=== PATIENT | male | born 1940 | race Caucasian/White ===

== ENCOUNTER 2016-05-26 14:49 | Emergency (ER) | payer MEDICARE ==
[~2016-05-26] VITALS: Ht 177.8 cm; Wt 85.0 kg
[~2016-05-26 14:49] MED LIST: ALLO300T2 PO; ASPI325T32 PO; CHOL200020 PO; GABA-502 PO; IMP25T PO; KLO1T PO; METF10002 PO; MULT-1018 PO; NIAC1CAP PO; OMEP-113 PO; PRAV40TA PO; PSYL1PAC10 PO
[2016-05-26 14:53] VITALS: BP 187/98; PULSE 86; RESP 18; O2SAT 96
--- NOTE | 2016-05-26 17:23 | ED.REPORT ---
HPI-Eye Problem Date of Service May 26, 2016 ED Provider: Leandro Montanez MD 75 year old male with a history of DM who presents to the ED due to diplopia onset 5 days ago. Pt has been unable to read the newspaper even with his glasses. Pt reports L eye aching, but denies itching, burning of the eye. Pt had the same symptoms 3 years ago which was attributed to diabetes by the environmental protection forester. Pt attributed his symptoms to recently starting Vitamin B Complex. He states he developed bowel changes, vision changes and bright colored urine after this. He stopped taking this and then has had nausea since. Pt was seen by his "eye doctor", Jatinder Rodgers, who noted no acute problem 1 day after the symptoms started. He was then seen by urgent care today. He was referred to imaging, but has been unable to get a head CT. He also complains of feeling unsteady on his feet. Pt denies cough, fever, SOB and CP. Nursing Notes Stated Complaint: EYE Chief Complaint: Eye Nursing Notes Reviewed: Yes Allergies: Coded Allergies: warfarin (Verified Allergy, Unknown, excess bleeding; nose bleeds, 05/26/16 ) sulfamethoxazole (Verified Adverse Reaction, Unknown, myalgias, insomnia, 11/13/13) trimethoprim (Verified Adverse Reaction, Unknown, myalgias, insomnia, 11/13) Scheduled Allopurinol (Allopurinol) 300 Mg Tablet 1.5 TAB PO DAILY Aspirin (Aspirin) 325 Mg Tablet. 325 MG PO DAILY Cholecalciferol (Vitamin D3) (Vitamin D-3) 2,000 Unit Capsule 1,000 UNIT PO DAILY Gabapentin (Gabapentin) 300 Mg Capsule 300 MG PO HS Imipramine HCl (Imipramine HCl) 25 Mg Tab 0.5 TAB PO DAILY Metformin (Metformin) 1,000 Mg Tablet 1,000 MG PO BIDWM Multivitamin (Multi Vitamin Daily) 1 Each Tablet 1 EACH PO DAILY Niacin (Inositol Niacinate) (Niacin 500 mg Capsule) 500 Mg Capsule 500 MG PO DAILY Pravastatin (Pravastatin) 40 Mg Tablet 40 MG PO HS Scheduled PRN Clonazepam (Clonazepam) 1 Mg Tab 0.5-1 MG PO HS PRN PRN For Anxiety Omeprazole Magnesium (Omeprazole) 20 Mg Capsule. 20 MG PO DAILY PRN PRN For Dyspepsia or Heartburn Miscellaneous Medications Psyllium Seed (with Sugar) (Metamucil Packet) 1 Each Packet 1 EACH PO General Time Seen by MD: 17:20 Chief Complaint Double vision Hx Obtained From: Patient, Spouse Arrived By: Walk-in Sudden in Onset?: No Onset Occurred: 5 days ago Symptom Duration: Since onset Progression Since Onset: Constant Severity: Current: No pain currently Associated with: Denies: Fever, Nausea Pertinent Negative: Exacerbated by nothing Risk-Eye Problem NIH Stroke Scale Level of Consciousness: Alert and responsive (0) Ask Month & Age: Both questions right (0) Open/Close Eyes/Hand Customer Success Specialist: Performs both tasks (0) Horizontal EO Movements: None (0) Visual Guadalupe: No visual loss (0) Facial Palsy: Normal symmetry (0) Right Arm Motor Drift (10s): No drift 10 sec (0) Left Arm Motor Drift (10s): No drift 10 sec (0) Right Leg Motor Drift (5s): No drift 5 sec (0) Left Leg Motor Drift (5s): No drift 5 sec (0) Limb Ataxia FNF/Heel-Schreiber: No ataxia (0) Sensation (Arms/Legs/Face): No sensory loss (0) Language Aphasia: No aphasia, normal (0) Dysarthria: No dysarthria, normal (0) Extinction/Inattention: No exctinct/inattent (0) NIHSS Score: 0 Time NIHSS Performed: 17:42 Date NIHSS Performed: May 26, 2016 Past Medical History Past Medical History Gout Reports: Coronary artery disease, Diabetes mellitus, GERD Reports: Atrial fibrillation, Urinary tract infection Past Surgical History Prostatectomy Laminectomy Reports: CABG, Cataract surgery (R eye) Smoking History Former Smoker Social History Other Social History: Good social support, Ambulatory Status Independent Review of Systems Basic Review of Systems Respiratory: No shortness of breath, No cough, No wheeze Cardiovascular: No chest pain, No dyspnea on exertion, No orthopnea, No parox noct dyspnea, No palpitations Constitutional: Denies: Fever Eyes: Reports: Blurred bilateral, Diplopia, Eye pain left Skin: Denies Rash Neurologic: Reports: Problem walking, Vision change, Denies: Focal weakness Complete sys rev & neg: except as marked. Physical Exam Initial Vital Signs Vital Signs (First) Date Time Temp Pulse Resp B/P Pulse Ox O2 Delivery O2 Flow Rate FiO2 05/26/16 14:53 86 18 187/98 96 Room Air Initial VS: Reviewed Neck: Supple, Full range of motion Respiratory: Breath sounds normal, Clear to auscultation, No respiratory distress Cardiovascular: Regular rate & rhythm, Heart sounds normal, Intact distal pulses Abdomen / GI: Soft, Non-tender Extremities: Vascular intact, Neuro intact, No swelling, No tenderness Skin: Warm, Dry, No cyanosis Neurologic: Alert, Oriented, Nonfocal Psychiatric: Mood/affect normal, Behavior normal, Normal thought content Head / Eyes: Atraumatic, Normocephalic L eye slightly erythematous Discharge & Departure Shift Change Sign-Out Patient Care Transferred: Yes Discussed Complaint(s): Yes Imaging Studies: Ordered, not yet done Primary Impression: Diplopia Referrals: Nafisa Dial MD (PCP) Care Transferred to: Dr. Barber Care Transferred at: 17:53 Scribe Attestation Portions of this note were transcribed by Sue Cm. I, (Dr. Montanez) personally performed the history, physical exam and medical decision-making; I reviewed and confirmed the accuracy of the information in the transcribed note. Signed by: Sue Cm. 05/26/2016, 2747 copies to: Nafisa Dial MD, Kirk H MD May 26, 2016 17:23 Sue Cm May 26, 2016 17:36
--- NOTE | 2016-05-26 18:17 | DRSVH ---
PROCEDURE: CT BRAIN WITHOUT CONTRAST ([id number]) INDICATIONS: diplopia, unsteady gait TECHNIQUE: Noncontrast 4.5 mm thick angled axial sections acquired from the foramen magnum to the vertex, with c oronal reformats. COMPARISON: [facility], CT, BRAIN W/O CONTRAST, 04/19/2013, 17:32. FINDINGS: Image quality: Excellent. CSF spaces: Basal cisterns are patent. No extra-axial fluid collections. The ventricles are symmet acacia in size and shape. Brain: No intracranial bleeds or masses. There is cerebral volume loss for age, with resultant vent ricular and sulcal prominence. There are periventricular and deep white matter chronic small vessel ischemic changes. There is intracranial internal carotid artery atherosclerosis. Skull and face: Punctate radiopaque foci are embedded within the soft tissues overlying the frontal bone. Calvarium and visualized facial bones appear intact, without suspicious lesions. Sinuses: Visualized sinuses and mastoids are clear. IMPRESSION: 1. No acute intracranial findings. 2. Mild findings likely associated with microvascular ischemic changes. Dictated by: Terese Bro M.D. on 05/26/2016 at 18:14 Approved by: Terese Bro M.D. on 05/26/2016 at 18:16
== END 2016-05-26 19:16 | disposition home or self-care (01) ==
LOC: SED 14:49
DX: H53.2 Diplopia (principal); R11.0 Nausea; R26.81 Unsteadiness on feet; I25.10 Atherosclerotic heart disease of native coronary artery without angina pectoris; I48.91 Unspecified atrial fibrillation; K21.9 Gastro-esophageal reflux disease without esophagitis; E11.9 Type 2 diabetes mellitus without complications; Z95.1 Presence of aortocoronary bypass graft; Z98.41 Cataract extraction status, right eye; Z79.82 Long term (current) use of aspirin; Z79.84 Long term (current) use of oral hypoglycemic drugs; Z87.891 Personal history of nicotine dependence; Z88.1 Allergy status to other antibiotic agents; Z88.8 Allergy status to other drugs, medicaments and biological substances
CPT/HCPCS: 70450; 93005; 99284; G0463

== ENCOUNTER 2016-05-27 05:56 | Emergency (ER) | payer MEDICARE ==
[~2016-05-27] VITALS: Ht 177.8 cm; Wt 87.7 kg
[2016-05-27 06:00] VITALS: BP 186/90; PULSE 80; RESP 12; O2SAT 96
--- NOTE | 2016-05-27 06:03 | ED.REPORT ---
HPI-Abd Pain M 40 and Over Date of Service May 27, 2016 ED Provider: Nubia Brown MD Patient is a 75-year-old male with a history of atrial fibrillation and DM who presents to the ED due to diplopia onset 6 days ago. He was seen by his "eye doctor", Jatinder Rodgers, who noted no acute problem when the symptoms began. Patient was seen by Urgent Care and the ED yesterday at which time labs and a head CT did not reveal any acute abnormality or intracranial findings. Patient c /o associated abdominal pain, nausea and constipation. He has lost 8 lbs over the course of a week. Patient experienced the same symptoms 2 years ago which lasted for two months and was attributed to diabetes by the speech professor. He had double bypass surgery twenty years ago and has been off Coumadin for 2 years. Nursing Notes Stated Complaint: ABDOMINAL PAIN Chief Complaint: Male Abdominal Pain Nursing Notes Reviewed: Yes Allergies: Coded Allergies: warfarin (Verified Allergy, Unknown, excess bleeding; nose bleeds, 05/27/16 ) sulfamethoxazole (Verified Adverse Reaction, Unknown, myalgias, insomnia, 05/27/16) trimethoprim (Verified Adverse Reaction, Unknown, myalgias, insomnia, 05/27) Scheduled Allopurinol (Allopurinol) 300 Mg Tablet 1.5 TAB PO DAILY Aspirin (Aspirin) 325 Mg Tablet. 325 MG PO DAILY Cholecalciferol (Vitamin D3) (Vitamin D-3) 2,000 Unit Capsule 1,000 UNIT PO DAILY Gabapentin (Gabapentin) 300 Mg Capsule 300 MG PO HS Imipramine HCl (Imipramine HCl) 25 Mg Tab 0.5 TAB PO DAILY Metformin (Metformin) 1,000 Mg Tablet 1,000 MG PO BIDWM Multivitamin (Multi Vitamin Daily) 1 Each Tablet 1 EACH PO DAILY Niacin (Inositol Niacinate) (Niacin 500 mg Capsule) 500 Mg Capsule 500 MG PO DAILY Pravastatin (Pravastatin) 40 Mg Tablet 40 MG PO HS Scheduled PRN Clonazepam (Clonazepam) 1 Mg Tab 0.5-1 MG PO HS PRN PRN For Anxiety Omeprazole Magnesium (Omeprazole) 20 Mg Capsule.dr 20 MG PO DAILY PRN PRN For Dyspepsia or Heartburn Miscellaneous Medications Psyllium Seed (with Sugar) (Metamucil Packet) 1 Each Packet 1 EACH PO General Time Seen by MD: 06:00 Chief Complaint Other (double vision) Hx Obtained From: Patient Arrived By: Walk-in Sudden in Onset?: Yes Onset Occurred: 6 days ago Symptom Duration: Since onset Progression since Onset: Unchanged Severity: Current: Mild Recent Healthcare: Recent doctor visit, Recent hospitalization Similar Sx Previous: Yes Risk Factors Risk Notes: NIH score 0 NIH Stroke Scale Level of Consciousness: Alert and responsive (0) Ask Month & Age: Both questions right (0) Open/Close Eyes/Hand Mini Shifter: Performs both tasks (0) Horizontal EO Movements: None (0) Visual Guadalupe: No visual loss (0) Facial Palsy: Normal symmetry (0) Right Arm Motor Drift (10s): No drift 10 sec (0) Left Arm Motor Drift (10s): No drift 10 sec (0) Right Leg Motor Drift (5s): No drift 5 sec (0) Left Leg Motor Drift (5s): No drift 5 sec (0) Limb Ataxia FNF/Heel-Schreiber: No ataxia (0) Sensation (Arms/Legs/Face): No sensory loss (0) Language Aphasia: No aphasia, normal (0) Dysarthria: No dysarthria, normal (0) Extinction/Inattention: No exctinct/inattent (0) NIHSS Score: 0 Past Medical History Past Medical History Notes: IMPLANTED DEVICE: [employer] Reveal XT pulse generator model 9529, serial #[id number]. 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 Eyes: Reports: Blurred bilateral (double vision bilateral) Physical Exam Initial Vital Signs Vital Signs (First) Date Time Temp Pulse Resp B/P Pulse Ox O2 Delivery O2 Flow Rate FiO2 05/27/16 06:00 36.1 80 12 186/90 96 Room Air Initial VS: Reviewed General/Constitutional: Awake, Alert, No acute distress, Cooperative, Not toxic appearing Respiratory / Chest: Atraumatic, Breath sounds NL, Breath sounds = bilat, No respiratory distress, No rales, No rhonchi, No wheezing, No retractions Cardiovascular: Heart rate NL, Regular rhythm, Heart sounds NL, No gallop, No murmurs, No rubs Abdomen: Atraumatic, Soft, Non-tender Bowel Sounds / Distention: Positive: Bowel sounds hypoactive Back: Atraumatic, Inspection NL, Full range of motion, Painless range of motion , Non-tender, No midline vertebral tend Head / Eyes: Atraumatic, Normocephalic, PERRL, EOMI grossly nonfocal aside from double vision Rectum / Perineum: Atraumatic, No discharge no stool in the vault Neurologic: Oriented X3, Speech NL, No motor deficits NIH score 0 Interpretation & Diagnostics Interpretation & Diagnostics: Angiogram MRI: IMPRESSION: BRAIN MRI: 1. No acute intracranial abnormality. No recent infarct. 2. Mild volume loss and small vessel ischemic disease. 3. Borderline findings for Chiari I malformation. BRAIN MR ANGIOGRAM: Negative cerebral MR angiography. NECK MR ANGIOGRAM: 1. No right internal carotid artery stenosis. Suboptimally visualized left internal carotid artery origin, which is otherwise patent. 2. Patent bilateral vertebral arteries. The estimate of stenosis included in the report of the imaging study was calculated using the NASCET method Dictated by: Constantine Harris M.D. on 05/27/2016 at 10:09 Approved by: Constantine Harris M.D. on 05/27/2016 at 10:18 Lab Results Interpretation Result Diagram: 05/27/16 0745 05/27/16 0745 Test 05/27/16 07:42 05/27/16 07:45 Hold [place] Top Tube Received (Received) White Blood Count 12.1th/mm3 (3.8-10.1) Red Blood Count 5.30mil/mm3 (4.40-5.80) Hemoglobin 16.9g/dL (13.8-17.2) Hematocrit 48.2% (41.0-50.0) Mean Corpuscular Volume 90.9fL (81-100) Mean Corpuscular Hemoglobin 31.9pg (27.0-35.0) Mean Corpuscular Hemoglobin Concent 35.1% (32.0-37.0) Red Cell Distribution Width 13.8% (12.3-15.4) Platelet Count 164bil/L (150-400) Neutrophils (%) (Auto) 78.7% (40-74) Lymphocytes (%) (Auto) 13.6% (14-46) Monocytes (%) (Auto) 7.2% (4-12) Eosinophils (%) (Auto) 0.1% (0-5) Basophils (%) (Auto) 0.2% (0-3) Sodium Level 136mEq/L (134-144) Potassium Level 4.3mEq/L (3.5-5.2) Chloride Level 96mEq/L (97-108) Carbon Dioxide Level 24mmol/L (18-29) Blood Urea Nitrogen 20mg/dL (8-27) Creatinine 0.97mg/dL (0.76-1.27) Estimat Glomerular Filtration Rate 80mL/min (>59) Glucose Level 162mg/dL (60-99) Calcium Level 9.9mg/dL (8.5-10.1) Total Bilirubin 0.9mg/dL (0.0-1.2) Aspartate Amino Transf (AST/SGOT) 33U/L (0-50) Alanine Aminotransferase (ALT/SGPT) 68U/L (0-44) Alkaline Phosphatase 86U/L (25-160) Troponin T < 0.010ug/L (0.0-0.011) Total Protein 7.3g/dL (6.4-8.4) Albumin 4.5g/dL (3.4-5.0) Lipase 34U/L (13-60) ECG Interpretation ECG Interpretation: Prolonged DC interval Time: 07:10 Interpreted by: ED physician Normal ECG Interpretation: Normal sinus rhythm (82) Rhythm / Conduction: RBBB - complete X-Ray Abdominal Interpretation Moderate right sided constipation without obstruction Study: 2 view Interpretation / Wet Read by: Interpret - Radiologist Re-Eval/Medical Decision Med Decision/Clinical Course 6 days diplopia. Increased abdominal distention and consitpation (choronic issue). Not having eating/swallow difficulty with sx for 6 days and normal eating in that time, currently hungry and cleared to eat. Needs MRI to futher eval the acute diplopia. did have eye consult on day 2 of sx and was told "everything is ok" and doesn't recall that any additional suggestions for work up were suggested. No headache and no other neuro sx. Reports similar episode, lasted about 2 months, 2-3 years ago. Has implantable defibrillator for number of years. From web site: The Reveal Plus ILR contains no lead wires or large loops of electrically conductive material. The electromagnetic guadalupe produced during MR imaging may adversely affect the data stored by the ILR Time of Eval: 12:03 Re-Evaluation/Progress Note: Pt is rechecked. Lab results and imaging discussed. Double vision attributed to DM. Informed pt of diagnosis and plan for treatment. Folllow up with opthmologist. Pt understands and agrees with plan. F/U and RTER warnings given. All questions addressed. Consultation : Referral / Consult Name: Alpesh Ramirez MD Consulted With: Neurology Call Returned at: 11:05 Brazing Machine Operator: Agrees with eval, Agrees with plan Note: Dr. Ramirez consulted and case disscussed. Counseled Regarding: Diagnosis, Lab results, Need for follow-up, When/why to return to ED Discharge & Departure Primary Impression: Diplopia Additional Impression: Constipation Ruled Out: Stroke Disposition: Home Vital Signs - All Vital Signs Date Time Temp Pulse Resp B/P Pulse Ox O2 Delivery O2 Flow Rate FiO2 05/27/16 06:00 36.1 80 12 186/90 96 Room Air )( All Prior VS Reviewed: Yes Condition: Stable Additional Instructions: Thank you for coming to the Emergency Room today. After reviewing your lab results and imaging, there are no signs of infection or serious health problems. The brain MRI is normal, there are no signs of stroke or tumor growth. Your double vision may be attributed to complications with diabetes and the small muscles that control eye movement. Please follow up with the speech professor who can assist you with further care. Please continue your daily asprin We hope you feel better soon! Referrals: Nafisa Dial MD (PCP) Scribe Attestation Portion of this note were transcribed by Marbella Covarrubias. I, Dr. Brown, personally performed the history, physical exam, and medical decision-making: I reviewed and confirmed the accuracy for the information in the transcribed note. Signed by: priya James, 05/27/16 0000 copies to: Nafisa Dial MD, Shawna L MD May 27, 2016 06:03 MARBELLA COVARRUBIAS May 27, 2016 06:27
[2016-05-27 07:56] LABS: BASOPHILS % (AUTO) 0.2 % (0-3); EOSINOPHILS % (AUTO) 0.1 % (0-5); MONOCYTES % (AUTO) 7.2 % (4-12); Mean Corpuscular Hemoglobin 31.9 pg (27.0-35.0); Mean Corpuscular Volume 90.9 fL (81-100); NEUTROPHILS % (AUTO) 78.7 % (40-74); Platelet Count 164 bil/L (150-400)
[2016-05-27 08:45] LABS: TROPONIN T < 0.010 ug/L (0.0-0.011)
--- NOTE | 2016-05-27 09:27 | DRSVH ---
PROCEDURE: X-RAY ABDOMEN, ONE VIEW ([id number]) INDICATIONS: constipation TECHNIQUE: One view of the abdomen acquired. COMPARISON: None. FINDINGS: Surgical changes and devices: Multiple pelvic surgical clips. Bowel: Moderate colonic stool present otherwise bowel gas pattern is normal. Soft tissues: No suspicious abdominal calcifications. Visualized solid organ contours appear normal in size. Bones: No suspicious bony lesions. IMPRESSION: Moderate colonic stool. Dictated by: Kwabena Decker RR Interpreted: Pj Elizabeth MD on 05/27/2016 at 9:26 Transcribed by: LEONA on 05/27/2016 at 9:26 Approved by: Pj Elizabeth M.D. on 05/27/2016 at 9:59
--- NOTE | 2016-05-27 10:20 | DRSVH ---
PROCEDURE: MRI STROKE PROTOCOL ([id number]) Pre- and post-contrast brain MRI, non-contrast brain MR angiogram, pre- and postcontrast neck MR rimma ogram INDICATIONS: 6 days severe diplopia TECHNIQUE: Brain: Noncontrast axial T1 spin echo, axial T2 fast spin echo, sagittal and axial FLAIR, coronal T2 fast spin echo, axial gradient echo, axial diffusion and ADC through the brain. After the administr ation of contrast, axial 3D VIBE of the cranial vasculature and brain. Brain MRA: Non-contrast 3-D time of flight MR angiogram, with multiple mjibkfj-embcyfmab-yptfkhiozn (MIP) reformats performed. Neck MRA: Axial and sagittal TruFISP through the neck. Coronal dynamic MR angiogram during administ ration of contrast in the arterial and venous phases, with 3-dimenstional duveujc-zvzkguxej-pxcucmzff n (MIP) reformats constructed from subtraction images. COMPARISON: None. FINDINGS: Image quality: Excellent. BRAIN: CSF spaces: Ventricles are normal in size and shape. Basal cisterns are patent. No extra-axial flu id collections. Brain: No intracranial bleeds or mass effects. There is mild diffuse volume loss. Mild degree of pat true high FLAIR signal intensity within the periventricular and subcortical white matter, consistent w ith small vessel ischemic disease. Sellers-white matter interface is normal. Diffusion weighted images show no acute ischemic insults. Low lying cerebellar tonsils are present, extending roughly 6 mm bel ow the foramen magnum Brainstem appears normal. Normal intravascular flow voids are present. No abn ormal intracranial enhancement. Skull and face: Calvarial marrow signal is normal. Orbits appear normal. Sinuses: Sinuses and mastoids are clear. BRAIN MR ANGIOGRAM: Anterior circulation: Intracranial internal carotid arteries are normal in size and enhancement. Th e flow within the paired anterior cerebral arteries is normal and symmetric. The flow within the mid dle cerebral arteries is normal and symmetric. The anterior communicating artery is seen. No stenos es, occlusions, or aneurysms. Posterior circulation: The visualized portions of the vertebral arteries demonstrate normal caliber, and join to form a normal appearing basilar artery. The flow within the posterior cerebral arteries is normal and symmetric. No stenoses, occlusions, or aneurysms. NECK MR ANGIOGRAM: Carotids: Great vessels demonstrate a conventional anatomy as they arise from the aortic arch. The origins of the common carotid arteries appear patent. The calibers and courses of both common caroti d arteries are normal. The right internal carotid artery is patent. Left proximal internal coronary a rtery is not well seen secondary to artifact, but is otherwise patent. Posterior circulation: The origins of the vertebral arteries appear patent. More superior portions of both vertebral arteries demonstrate normal course and caliber, and join to form a normal appearing basilar artery. Miscellaneous: Subclavian arteries appear patent. Pre-contrast images through the neck show no soft tissue abnormalities. IMPRESSION: BRAIN MRI: 1. No acute intracranial abnormality. No recent infarct. 2. Mild volume loss and small vessel ischemic disease. 3. Borderline findings for Chiari I malformation. BRAIN MR ANGIOGRAM: Negative cerebral MR angiography. NECK MR ANGIOGRAM: 1. No right internal carotid artery stenosis. Suboptimally visualized left internal carotid artery or igin, which is otherwise patent. 2. Patent bilateral vertebral arteries. The estimate of stenosis included in the report of the imaging study was calculated using the NASCET method Dictated by: Constantine Harris M.D. on 05/27/2016 at 10:09 Approved by: Constantine Harris M.D. on 05/27/2016 at 10:18
[2016-05-27 12:21] VITALS: BP 189/92; PULSE 78; RESP 16; O2SAT 95
== END 2016-05-27 12:25 | disposition home or self-care (01) ==
LOC: SED 06:17
DX: H53.2 Diplopia (principal); K59.00 Constipation, unspecified; E11.9 Type 2 diabetes mellitus without complications; K21.9 Gastro-esophageal reflux disease without esophagitis; I25.10 Atherosclerotic heart disease of native coronary artery without angina pectoris; Z95.1 Presence of aortocoronary bypass graft; Z87.891 Personal history of nicotine dependence; Z79.82 Long term (current) use of aspirin; Z79.84 Long term (current) use of oral hypoglycemic drugs; Z88.2 Allergy status to sulfonamides; Z88.8 Allergy status to other drugs, medicaments and biological substances
CPT/HCPCS: 36415; 70549; 70553; 74000; 80053; 83690; 84484; 85025; 93005; 99284; A9585

== ENCOUNTER 2016-06-03 03:10 | Emergency (ER) | payer MEDICARE ==
[~2016-06-03] VITALS: Ht 177.8 cm; Wt 90.9 kg
[2016-06-03] VITALS (19 sets, daily range): BP systolic 132–191; BP diastolic 72–100; PULSE 67–125; RESP 16–21; O2SAT 93–96
--- NOTE | 2016-06-03 03:12 | ED.REPORT ---
HPI-General Illness Date of Service Jun 03, 2016 ED Provider: Shayan Gambino MD Patient is a 75 year old male with a history of diabetes mellitus, coronary artery disease, and atrial fibrillation who presents to the ED via EMS with altered mental status, after he reportedly developed a headache and nausea this morning. Patient has been experiencing diplopia for the past week, with 2x ED visits on the and for this complaint. The patient had a normal CT Brain and an MR Angio Head and Neck, which was normal other than the finding of a borderline Chiari malformation. Patient has also reported severe pain in his left eye, which also is also present in his right eye intermittently. Patient is unable to clarify when his headache tonight started but there was no mention of the patient having a headache prior to today. Patient is having difficulty providing history on arrival to the ED, however it is known that he is scheduled to be seen at [facility] today for his diplopia, with Dr. Rutledge. Nursing Notes Stated Complaint: MO Nursing Notes Reviewed: Yes Allergies: Coded Allergies: warfarin (Verified Allergy, Unknown, excess bleeding; nose bleeds, 06/03/16 ) sulfamethoxazole (Verified Adverse Reaction, Unknown, myalgias, insomnia, 06/03/16) trimethoprim (Verified Adverse Reaction, Unknown, myalgias, insomnia, 06/03) Scheduled Allopurinol (Allopurinol) 300 Mg Tablet 1.5 TAB PO DAILY Aspirin (Aspirin) 325 Mg Tablet.dr 325 MG PO DAILY Cholecalciferol (Vitamin D3) (Vitamin D-3) 2,000 Unit Capsule 1,000 UNIT PO DAILY Gabapentin (Gabapentin) 300 Mg Capsule 300 MG PO HS Imipramine HCl (Imipramine HCl) 25 Mg Tab 0.5 TAB PO DAILY Metformin (Metformin) 1,000 Mg Tablet 1,000 MG PO BIDWM Multivitamin (Multi Vitamin Daily) 1 Each Tablet 1 EACH PO DAILY Niacin (Inositol Niacinate) (Niacin 500 mg Capsule) 500 Mg Capsule 500 MG PO DAILY Pravastatin (Pravastatin) 40 Mg Tablet 40 MG PO HS Scheduled PRN Clonazepam (Clonazepam) 1 Mg Tab 0.5-1 MG PO HS PRN PRN For Anxiety Omeprazole Magnesium (Omeprazole) 20 Mg Capsule.dr 20 MG PO DAILY PRN PRN For Dyspepsia or Heartburn Miscellaneous Medications Psyllium Seed (with Sugar) (Metamucil Packet) 1 Each Packet 1 EACH PO General Time Seen by MD: 03:12 Chief Complaint Altered mental status, Headache Hx Obtained From: Patient, EMS Unable to Obtain Hx: Patient condition, Mental status Arrived By: Ambulance Sudden in Onset?: No Onset Occurred: Onset unknown Symptom Duration: Since onset Location: : Head Quality: Painful Severity: Current: Severe Severity: Maximum: Severe Recent Healthcare: Recent doctor visit Similar Sx Previous: Yes Past Medical History Past Medical History Notes: IMPLANTED DEVICE: [employer]urance Reveal XT pulse generator model 9529, serial #[id number]. Past Medical History Gout heart murmur hyperlipidemia chronic constipation sleep apnea Menieres disease cataracts in both eyes prostrate cancer Reports: Coronary artery disease, Diabetes mellitus, GERD Reports: Atrial fibrillation, Urinary tract infection Past Surgical History Prostatectomy Laminectomy Reports: CABG, Cataract surgery Smoking History Former Smoker Social History Other Social History: Good social support, Ambulatory Status Independent Review of Systems Unable to Obtain ROS Mental status (limited) Full Review of Systems Eyes: Reports: Diplopia, Eye pain left, Eye pain right GI: Reports: Nausea Neurologic: Reports: Headache Complete sys rev & neg: except as marked. Physical Exam Vital Signs Vital Signs Date Time Temp Pulse Resp B/P Pulse Ox O2 Delivery O2 Flow Rate FiO2 06/03/16 06:04 79 18 132/76 93 Room Air 06/03/16 05:18 87 18 155/94 95 Room Air 06/03/16 05:11 95 18 153/95 95 Room Air 06/03/16 05:02 98 138/95 06/03/16 04:57 120 138/95 06/03/16 04:40 125 06/03/16 04:26 117 18 136/81 95 Room Air 06/03/16 03:16 36.7 113 21 188/100 96 Room Air Initial VS: Reviewed General/Constitutional: Awake, Alert Patient is able to answer yes/no questions, but is otherwise nonverbal cannot assess orientation Head / Eyes: Atraumatic, Normocephalic, PERRL Complete palsy of the left medial rectus, left eye will not cross the midline. No findings of the right eye. Left eye is patched to prevent diplopia. ENT: Airway patent Neck: Supple, Full range of motion Respiratory / Chest: Breath sounds NL, Breath sounds = bilat, No respiratory distress, No rales, No rhonchi, No wheezing Cardiovascular: Heart rate NL, Regular rhythm, Heart sounds NL, No murmurs Abdomen: Soft, Non-tender, No guarding, No rebound Upper Extremities Upper Extremity / MS: Full range of motion, Neurologic intact, Vascular intact Lower Extremity / Pelvis / MS: Full range of motion, Neurologic intact, Vascular intact Neurologic: No motor deficits (equal but weak machine pan greaser strength) Complete palsy of the left medial rectus, left eye will not cross the midline. Very mild left sided facial slackness, but it will move. Abnormal Mood/Affect: Positive: Flat affect Interpretation & Diagnostics Lab Results Interpretation Result Diagram: 06/03/16 0320 06/03/16 0320 Test 06/03/16 03:20 06/03/16 04:08 White Blood Count 13.1th/mm3 (3.8-10.1) Red Blood Count 5.51mil/mm3 (4.40-5.80) Hemoglobin 18.0g/dL (13.8-17.2) Hematocrit 50.7% (41.0-50.0) Mean Corpuscular Volume 92.0fL (81-100) Mean Corpuscular Hemoglobin 32.7pg (27.0-35.0) Mean Corpuscular Hemoglobin Concent 35.5% (32.0-37.0) Red Cell Distribution Width 13.8% (12.3-15.4) Platelet Count 179bil/L (150-400) Neutrophils (%) (Auto) 70.6% (40-74) Lymphocytes (%) (Auto) 19.8% (14-46) Monocytes (%) (Auto) 9.0% (4-12) Eosinophils (%) (Auto) 0.2% (0-5) Basophils (%) (Auto) 0.2% (0-3) Prothrombin Time 11.9sec (8.1-12.5) Prothromb Time International Ratio 1.11ratio Activated Partial Thromboplast Time 27.3sec (22.8-33.0) Sodium Level 137mEq/L (134-144) Potassium Level 4.4mEq/L (3.5-5.2) Chloride Level 96mEq/L (97-108) Carbon Dioxide Level 21mmol/L (18-29) Blood Urea Nitrogen 21mg/dL (8-27) Creatinine 1.18mg/dL (0.76-1.27) Estimat Glomerular Filtration Rate 64mL/min (>59) Glucose Level 171mg/dL (60-99) Calcium Level 9.9mg/dL (8.5-10.1) Magnesium Level 2.0mg/dL (1.6-2.6) Total Bilirubin 0.8mg/dL (0.0-1.2) Aspartate Amino Transf (AST/SGOT) 27U/L (0-50) Alanine Aminotransferase (ALT/SGPT) 56U/L (0-44) Alkaline Phosphatase 87U/L (25-160) Troponin T 0.010ug/L (0.0-0.011) Total Protein 7.7g/dL (6.4-8.4) Albumin 4.8g/dL (3.4-5.0) Alcohol, Quantitative < 10mg/dL (0-10) Urine Color Yellow (YELLOW) Urine Appearance Clear (CLEAR,HAZY) Urine pH 6.5 (5.0-8.0) Urine Specific Haugen 1.015 (1.003-1.035) Urine Protein Tracemg/dL (NEG,TRACE) Urine Glucose (UA) Negativemg/dL (NEGATIVE) Urine Ketones Tracemg/dL (NEGATIVE) Urine Occult Blood Trace (NEGATIVE) Urine Nitrite Negative (NEGATIVE) Urine Bilirubin Negative (NEGATIVE) Urine Urobilinogen Normalmg/dL (NORMAL) Urine Leukocyte Esterase Negative (NEGATIVE) Urine RBC 0-2/hpf (0-2) Urine WBC 0-5/hpf (0-5) Urine Epithelial Cells Occasional/hpf (NONE-MOD) Urine Crystals None seen (NONE SEEN) Urine Bacteria None/hpf (NONE-FEW) Urine Hyaline Casts None/lpf (NONE) Urine Granular Casts None seen (NONE SEEN) Urine Waxy Casts None seen (NONE SEEN) Urine Red Blood Cell Casts None seen (NONE SEEN) Urine White Blood Cell Casts None seen (NONE SEEN) Urine Mucus None seen (None Seen) Urine Trichomonas None seen (NONE SEEN) Urine Yeast None (NONE SEEN) Urine Culture Reflexed Not indicated ECG Interpretation ECG Interpretation: Sinus tachycardia, Rate 108 RBBB Prominent P waves Time: 03:21 Interpreted by: ED physician Normal ECG Interpretation: No change from prior ECGs (05/27/2016, other than tachycardia) X-Ray Chest Interpretation View: Portable Interpretation / Wet Read by: Wet read ED physician Reviewed Previous Films: No change CT Head Interpretation CONCLUSION: Mild atrophy and periventricular white matter changes consistent with the patient's age. No hemorrhage or other specific acute abnormality demonstrated. Disconjugate gaze? Radiologist: Dash Washington MD 06/03/2016 - 4:05:36 AM PST Study: Head CT no contrast Interpretation / Wet Read by: Interpret - Radiologist Re-Eval/Medical Decision Med Decision/Clinical Course 75-year-old with a recent onset of a third nerve palsy affecting the medial rectus of the left eye. He is ordinarily quite oriented and alert, and presents today with a headache and altered mental status, seeming confused and inconsolable about multiple symptoms including restless legs his headache generalized pain. There are no other focal findings noted on his neurological exam. Repeat CT today does not show any bleeding. There is no metabolic explanation apparent. Chest x-ray is unchanged, urine tox is negative for intoxicants, and alcohol is negative. Discussed with neurology at [facility], where he is to be seen today, and they will take him in transfer pending bed availability. Anticipate that at change of shift this morning. He will be transferred by S ambulance, required because of his need for supervision given his mental status change. Source of Hx: Old records Time of Eval: 05:23 Re-Evaluation/Progress Note: Rechecked the patient, who is now joined by his significant other. He states that the patient is typically very sharp and with it. He was seen by Dr. Gordon yesterday, who believed that his symptoms were due to diabetes mellitus. He states that Dr. Rutledge, who works at [facility], was able to resolve this same problem 3 years ago. He has an appointment at that facility at 8:30am this morning. Patient complains of restless legs. Patient will need to be admitted to the hospital for further care, will contact [facility] for possible transfer. Time of Eval: 06:06 Re-Evaluation/Progress Note: Informed the patient and his family of pending transfer to [facility]. This process may take several hours. Will update them once there is more information. Consultation #1: Consulted With: Neurology Call Returned at: 05:46 Note: Spoke with Dr. Boone, [facility], about the patient's case. She requests to have the patient transferred to [facility]. Consultation #2: Call Returned at: 06:06 Note: Spoke with the [facility] transfer center. They will accept the patient for transfer, pending bed availability. Counseled Regarding: Diagnosis, Lab results, Need for admission, Need for transfer Discharge & Departure Primary Impression: Altered mental status Altered mental status type: unspecified Qualified Code: R41.82 - Altered mental status, unspecified Additional Impressions: Diplopia Headache Headache type: unspecified Headache chronicity pattern: acute headache Intractability: intractable Qualified Code: R51 - Headache Disposition: Transfer, Acute Care Facility ([facility]) Receiving Hospital: [facility] Transfer Accepted: Yes Transfer Reason: Higher level of care Spoke with: Specialty physician Patient Status: Stable Patient Informed: Yes Discharge Condition All VS Reviewed: Yes Condition: Stable Referrals: Nafisa Dial MD (PCP) WILLI GORDON MD Attestation Portions of this note were transcribed by Rosy Hurt. I, Dr. Gambino personally performed the history, physical exam and medical decision-making; I reviewed and confirmed the accuracy of the information in the transcribed note. Signed by: Elgin Mcdonough, 06/03/2016 0607 copies to: WILLI GORDON MD; Nafisa Dial MD, Christopher W MD Jun 03, 2016 03:12 Rosy Hurt Jun 03, 2016 03:30
[2016-06-03 03:24] LABS: BASOPHILS % (AUTO) 0.2 % (0-3); EOSINOPHILS % (AUTO) 0.2 % (0-5); Mean Corpuscular Hemoglobin 32.7 pg (27.0-35.0); NEUTROPHILS % (AUTO) 70.6 % (40-74); Platelet Count 179 bil/L (150-400)
[2016-06-03] MEDS ORDERED: 0.9% Sodium Chloride 1,000 ML IV ONE (03:24)
[2016-06-03] MEDS ORDERED: Ondansetron 2 mg/mL 2 mL Inj ONE (03:32)
[2016-06-03 03:42] LABS: INR 1.11 ratio
[2016-06-03 03:52] LABS: TROPONIN T 0.01 ug/L (0.0-0.011)
[2016-06-03 04:16] LABS: APPEARANCE,URINE CLEAR (CLEAR,HAZY); COLOR,URINE YELLOW (YELLOW); OCCULT BLOOD,URINE TRACE (NEGATIVE); PH,URINE 6.5 (5.0-8.0); UROBILINOGEN,URINE NORMAL (NORMAL)
[2016-06-03] MEDS: MeTOProlol 1 mg/mL 5 mL Inj IVPUSH SCH ×3 (04:59→05:12)
[2016-06-03] MEDS ORDERED: Ketorolac 15 mg/mL Inj IVPUSH ONE (06:00)
[2016-06-03] MEDS ORDERED: Ondansetron 2 mg/mL 2 mL Inj IVPUSH ONE (06:10)
[2016-06-03] MEDS ORDERED: oxyCODONE-Acetamin 5-325 mg Tablet PO ONE ×4 (06:25→13:50)
--- NOTE | 2016-06-03 08:13 | DRSVH ---
PROCEDURE: CT BRAIN WITHOUT CONTRAST ([id number]) INDICATIONS: DOUBLE VISION HEADACHE TECHNIQUE: Noncontrast 4.5 mm thick angled axial sections acquired from the foramen magnum to the vertex, with c oronal reformats. COMPARISON: [facility], MR, MR STROKE PROTOCOL, 05/27/2016, 8:47. [facility] , CT, CT BRAIN WO CON, 05/26/2016, 17:50. FINDINGS: Image quality: Excellent. CSF spaces: Basal cisterns are patent. No extra-axial fluid collections. The ventricles are symmet acacia in size and shape. Brain: No intracranial bleeds or masses. There is moderate cerebral volume loss for age, with resul tant ventricular and sulcal prominence. There are moderate periventricular and deep white matter chr onic small vessel ischemic changes. There is intracranial internal carotid artery atherosclerosis. Skull and face: Calvarium and visualized facial bones appear intact, without suspicious lesions. Sinuses: Visualized sinuses and mastoids are clear. IMPRESSION: 1. No acute intracranial abnormalities. 2. Cerebral volume loss and chronic microvascular ischemic changes. No significant discrepancy with the night warehouse manager radiology preliminary report. Dictated by: Pj Elizabeth M.D. on 06/03/2016 at 8:08 Approved by: Pj Elizabeth M.D. on 06/03/2016 at 8:11
--- NOTE | 2016-06-03 09:03 | DRSVH ---
PROCEDURE: X-RAY CHEST ONE VIEW, PORTABLE ([id number]) INDICATIONS: CP TECHNIQUE: One view of the chest was acquired. COMPARISON: [facility], CR, CHEST 1VW (PORTABLE), 04/19/2013, 16:45. FINDINGS: Surgical changes and devices: Post median sternotomy. A chronic device projected over the mid left l tobi. Lungs and pleura: No pleural effusions or pneumothorax. Bibasilar streaky opacities redemonstrated. Mediastinum: Mediastinal contours appear normal. Heart size is normal. Bones and chest wall: No suspicious bony lesions. Overlying soft tissues appear unremarkable. IMPRESSION: 1. Bibasilar atelectasis versus aspiration, pneumonia or scarring which appear similar to prior exam. Correlate clinically. Dictated by: Kwabena Decker [facility] Interpreted: Karlie Lewis MD on 06/03/2016 at 9:01 Transcribed by: MATILDA on 06/03/2016 at 9:02 Approved by: Karlie Lewis MD, PhD on 06/03/2016 at 17:03
--- NOTE | 2016-06-03 13:57 | DRSVH ---
PROCEDURE: MRI STROKE PROTOCOL ([id number]) Pre- and post-contrast brain MRI, non-contrast brain MR angiogram, pre- and postcontrast neck MR rimma ogram INDICATIONS: acute altered mental status, 2 wks diplopia TECHNIQUE: Brain: Noncontrast axial T1 spin echo, axial T2 fast spin echo, sagittal and axial FLAIR, coronal T2 fast spin echo, axial gradient echo, axial diffusion and ADC through the brain. After the administr ation of contrast, axial 3D VIBE of the cranial vasculature and brain. Brain MRA: Non-contrast 3-D time of flight MR angiogram, with multiple bmxvpmh-jqxlqxfod-nfsnzvslxv (MIP) reformats performed. Neck MRA: Axial and sagittal TruFISP through the neck. Coronal dynamic MR angiogram during administ ration of contrast in the arterial and venous phases, with 3-dimenstional jbdaxtq-cowklruty-przapchzn n (MIP) reformats constructed from subtraction images. COMPARISON: [facility], , MR STROKE PROTOCOL, 05/27/2016, 8:47. FINDINGS: Image quality: Limited by motion artifact. BRAIN: CSF spaces: Ventricles are normal in size and shape. Basal cisterns are patent. No extra-axial flu id collections. Brain: No intracranial bleeds or mass effects. Sellers-white matter interface is normal. Diffusion we ighted images show no acute ischemic insults. Scattered, punctate foci of increased T2 signal noted in the periventricular and subcortical white matter tracts compatible with mild chronic microvascular ischemic change. Brainstem appears normal. Low lying cerebellar tonsils are stable in appearance com pared to prior examination. Normal intravascular flow voids are present. No abnormal intracranial e nhancement. Skull and face: Calvarial marrow signal is normal. Orbits appear normal. Sinuses: Sinuses and mastoids are clear. BRAIN MR ANGIOGRAM: Anterior circulation: Intracranial internal carotid arteries are normal in size and enhancement. Th e flow within the paired anterior cerebral arteries is normal and symmetric. The flow within the mid dle cerebral arteries is normal and symmetric. The anterior communicating artery is seen. No stenos es, occlusions, or aneurysms. Posterior circulation: The visualized portions of the vertebral arteries demonstrate normal caliber, and join to form a normal appearing basilar artery. The flow within the posterior cerebral arteries is normal and symmetric. No stenoses, occlusions, or aneurysms. NECK MR ANGIOGRAM: Carotids: Great vessels demonstrate a conventional anatomy as they arise from the aortic arch. The origins of the common carotid arteries appear patent. The calibers and courses of both common caroti d arteries are normal. The bifurcation regions appear normal bilaterally. The internal carotid clarissa aicha demonstrate normal course and caliber. Posterior circulation: The origins of the vertebral arteries appear patent. More superior portions of both vertebral arteries demonstrate normal course and caliber, and join to form a normal appearing basilar artery. Miscellaneous: Subclavian arteries appear patent. Pre-contrast images through the neck show no soft tissue abnormalities. IMPRESSION: BRAIN MRI: 1. Stable examination compared to 05/27/16. 2. No acute intracranial disease process. 3. No areas of acute or chronic infarction. 4. Mild, diffuse volume loss. 5. Mild periventricular and subcortical white matter chronic microvascular ischemic changes. 6. Low lying cerebellar tonsils stable compared to prior examination.. BRAIN MR ANGIOGRAM: Negative examination. NECK MR ANGIOGRAM: 1. Less than 50% stenosis of the origins of the internal carotid arteries bilaterally. 2. Vertebral arteries are fully patent bilaterally. The estimate of stenosis included in the report of the imaging study was calculated using the NASCET method Dictated by: Karlie Lewis MD, PhD on 06/03/2016 at 13:38 Approved by: Karlie Lewis MD, PhD on 06/03/2016 at 13:55
== END 2016-06-03 14:04 | disposition short-term general hospital (02) ==
LOC: SED 03:10
DX: R41.82 Altered mental status, unspecified (principal); H53.2 Diplopia; K21.9 Gastro-esophageal reflux disease without esophagitis; E11.9 Type 2 diabetes mellitus without complications; I25.10 Atherosclerotic heart disease of native coronary artery without angina pectoris; Z85.46 Personal history of malignant neoplasm of prostate; Z87.891 Personal history of nicotine dependence; Z95.1 Presence of aortocoronary bypass graft; Z79.82 Long term (current) use of aspirin; Z79.84 Long term (current) use of oral hypoglycemic drugs; Z88.2 Allergy status to sulfonamides; Z88.8 Allergy status to other drugs, medicaments and biological substances
CPT/HCPCS: 36415; 70450; 70549; 70553; 71010; 80053; 81000; 82948; 83735; 84484; 85025; 85610; 85730; 93005; 96361; 96374; 96375; 96376; 99285; A9585; G0480; J1885; J2060; J2405; J7030

== ENCOUNTER → 2016-10-31 | Day surgery (SDC) | payer MEDICARE ==
[~2016-10-31] VITALS: Ht 177.8 cm; Wt 88.0 kg
[~2016-10-31] MED LIST changes: +ASPI-973 PO; +GLIP2.5T2 PO; +Lactated Ringer's 1,000 ML IV ONE; +Lactated Ringer's 1,000 ML IV SCH; +MetoCLOpramide 5 mg/mL 2 mL Inj IVPUSH PRN; +Ondansetron 2 mg/mL 2 mL Inj IVPUSH PRN; +Propofol 10,000 mCg/mL 20 mL Inj ONE; +fentaNYL-PF 50 mCg/mL 2 mL Inj ONE
--- NOTE | 2016-10-31 08:40 | PCM.HPANE ---
Patient Data Surgeon Admitting Provider: Attending Provider:Joe Tobar MD Primary Care Physician:Nafisa Dial MD Other Provider:Chuy Fields Anesthesia Reason for Visit Diverticulitis Ht/WT & BMI Body Mass Index Allergies Coded Allergies: warfarin (Verified Allergy, Unknown, excess bleeding; nose bleeds, 10/31/16 ) sulfamethoxazole (Verified Adverse Reaction, Unknown, myalgias, insomnia, 10/31/16) trimethoprim (Verified Adverse Reaction, Unknown, myalgias, insomnia, 10/31) Past Anesthesia History Anesthesia History: Denies:: Abnormal Airway, Anesthesia Reactions, Difficult Intubation, Fam Anesthesia Reaction, Fam Malignant Hypertherm, Malignant Hyperthermia Diabetes History Hx Diabetes?: Yes (doesn't check blood sugars on a regular basis.) 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) Medications Blood Thinner: Aspirin Reported Medications Aspirin 81 Mg [id number] Mg PO DAILY Ref 0 10/31/16 Glipizide ER 2.5 Mg Tab.er.242.5 Mg PO DAILY 10/30/16 Gabapentin 300 Mg [id number] Mg PO HS 30 Days Ref 0 09/01/14 Metformin 1,000 Mg Tablet1,000 Mg PO BIDWM 30 Days Ref 0 09/01/14 Clonazepam 1 Mg Tab0.5-1 Mg PO HS PRN For Anxiety 30 Days Ref 0 08/31/14 Imipramine HCl 25 Mg Tab0.5 Tab PO DAILY Ref 0 11/13/13 Omeprazole Magnesium (Omeprazole)20 Mg Capsule.dr20 Mg PO DAILY PRN For Dyspepsia or Heartburn 30 Days Ref 0 11/13/13 Cholecalciferol (Vitamin D3) (Vitamin D-3)2,000 Unit Capsule1,000 Unit PO DAILY 11/13/13 Niacin (Inositol Niacinate) (Niacin 500 mg Capsule)500 Mg [id number] Mg PO DAILY 11/13/13 Pravastatin 40 Mg Jnjeea84 Mg PO HS 30 Days Ref 0 11/13/13 Allopurinol 300 Mg Tablet1.5 Tab PO DAILY #30 TABLET Ref 0 11/13/13 Discontinued Reported Medications Aspirin 325 Mg Tablet.dr325 Mg PO DAILY #1 BOTTLE Ref 0 09/01/14 Psyllium Seed (with Sugar) (Metamucil Packet)1 Each Packet1 Each PO 08/31/14 Multivitamin (Multi Vitamin Daily)1 Each Tablet1 Each PO DAILY 30 Days Ref 0 11/13/13 History History of ENT Problems?: Yes HEENT History: Positive for:: Cataracts (Rt eye couple of yrs ago) Hearing Problem Sinus Problem (Chronic allergies) Denies:: Abnormal Airway Difficult Intubation Dysphagia Denture Type: None Teeth Condition: Within Normal Limits Hx of Heart Problems?: Yes Cardiovascular History: Positive for:: Atrial Fibrillation Cardiac Surgery (CABG 2 way) Chest Pain Irregular Heartbeat (A. Vera, diagnosed "A year or year and half ago.") Denies:: AICD Congestive Heart Failure Edema Heart Murmur Hypertension Pacemaker Thrombophlebitis Valvular Heart Disease Hx of Respiratory Problem?: Yes Respiratory History: Positive for:: Chest Surgery (CABG) Denies:: Asthma COPD Cough Dyspnea Emphysema Hemoptysis Pneumonia Tuberculosis Hx Neurologic Problems?: Yes Neurological History: Positive for:: Dizziness (benign positional vertigo / dizziness) Denies:: Alzheimer's Disease CVA Dementia Headaches Parkinson's Disease Seizures Hx of GI Problems?: Yes Hx of Problems?: Yes Genitourinary History: Positive for:: Urinary Tract Infection Denies:: Kidney Stones Male Hx: Positive for:: Prostate Problems (prostatectomy '06) Denies:: Scrotal Mass Testicular Surgery Skin History: Denies:: History Skin Disorders? Pressure Ulcers Hx Musculoskeletal Problems?: Yes Musculoskeletal History: Positive for:: Back Injury (Laminectomy) Denies:: Joint Replacement Musculoskeletal Trauma Hx of Psycho/Social Problems?: Yes Psycho Social History: Positive for:: Anxiety Denies:: Bipolar Disorder Hx Depression Suicide Attempt Hx Surgeries?: Yes (double bypass, prostatectomy, laminectomy,ECG recorder placed) Hx Any Other Health Problems?: Yes Other History: Positive for:: Cancer (prostate) Hospitalization (2012 [facility]) Denies:: Endocrine Disease Thyroid Disease History Blood Transfusions: Denies:: Blood Transfusions Hx Diabetes: Yes (doesn't check blood sugars on a regular basis.) Hx Alcohol Use: Yes (rarely)Hx Substance Use: No Smoking Status: Former Smoker Have You Smoked inLast 12 mo: No Stop/Bang Risk Assessment Category Category 1A: Patient has history of documented sleep apnea, and HAS NOT received any narcotic, sedative or anesthesia administration during this stay. Category 1B: Patient has history of documented sleep apnea, and HAS received any narcotic , sedative or anesthesia administration during this stay Category 2: Patient has SUSPECTED Obstructive Sleep Apnea, and HAS received any narcotic , sedative or anesthesia administration during this stay. Category 3: Patient has SUSPECTED Obstructive Sleep Apnea and HAS NOT received narcotic, sedative or anesthesia administration during this stay. Category 4: Outpatient in Procedural Areas with known sleep apnea or who screen positive for High Risk via the STOP/BANG questionnaire. Exam Exam General Appearance: Alert, Oriented X3, Cooperative HEENT/AIRWAY: MP 2 Lungs: Clear to Auscultation Heart: Exam Unremarkable Plan Impression Patient chart reviewed, patient interviewed and anesthestic plan with risks, benefits, and alternatives discussed, and informed consent obtained. ASA Physical Status: ASA2 Mod Systemic Disease Anesthetic Plan: MAC Bene/Risks/Altern/Consents: Yes HP Complete Prior to Induction: Yes Modesto Masterson MD Oct 31, 2016 08:40
[2016-10-31 09:04] VITALS: BP 142/77; PULSE 69; RESP 16; O2SAT 95
[2016-10-31 10:20] VITALS: BP 99/53; PULSE 64; RESP 16; O2SAT 92
[2016-10-31 10:32] VITALS: BP 111/64; PULSE 60; RESP 16; O2SAT 94
[2016-10-31 10:40] VITALS: BP 120/68; PULSE 59; RESP 16; O2SAT 96
--- NOTE | 2016-10-31 11:30 | ENDO ---
[address] [address] ENDOSCOPY PROCEDURE PATIENT: PALOMA JOHNSTON : 1940 MR#: [id number] ADMIT: 10/31/2016 JOB ID: [id number] DATE: 10/31/2016 PREOPERATIVE DIAGNOSIS(ES): 1. Personal history of colon polyps. 2. Recent history of diverticulitis. POSTOPERATIVE DIAGNOSIS(ES): A sigmoid colon polyp. OPERATION: Colonoscopy to cecum with snare polypectomy with cautery. SURGEON: Joe Tobar M.D. INDICATIONS: A 76-year-old man who has a personal history of colon polyps but also earlier this year had a clinical diverticulitis with a thickened descending colon. He was elected to proceed with a colonoscopy. FINDINGS: He had a poor prep. The scope was advanced to the cecum. It was withdrawn over 14 minutes 27 seconds. The only abnormality was in the sigmoid colon was an estimated 6-7 mm polyp. It was submitted to Pathology. Retroflexed views of the rectum were normal. DESCRIPTION OF PROCEDURE: The procedure and sedation plan was discussed with the patient and nursing staff, and a procedural time-out was held. Dr. Dereck Masterson from anesthesia provided sedation. A digital rectal examination was performed. Then, the Olympus PCF H 180 AL video colonoscope was passed transanally, advanced to the cecum, withdrawn over 14 minutes 27 seconds with the results and procedures as discussed above. There was no bleeding from the polypectomy site. There were no apparent complications. IMPRESSION: Sigmoid colon polyp. No circumferential lesion to explain the thickened colon seen on the CT scan. No evidence of inflammation or carcinoma. RECOMMENDATIONS: I would recommend repeating a colonoscopy in three years because of his poor prep and the findings of a polyp.
--- NOTE | 2016-10-31 13:06 | PCM.ANEP1 ---
Post Anesthesia PACU Phase 1 Assessment Vital Signs Vital Signs Date Time Temp Pulse Resp B/P Pulse Ox O2 Delivery O2 Flow Rate FiO2 10/31/16 10:40 59 16 120/68 96 Room Air 10/31/16 10:32 60 16 111/64 94 Room Air 10/31/16 10:20 64 16 99/53 92 Room Air 10/31/16 09:04 69 16 142/77 95 Room Air Anesthetic Administered: GA Level of Alertness: Awake, talking GARCIA's with Equal Strength: Yes Pain: No Nausea or Vomiting: No CV Function & Hydration Stable: Yes Airway Device: Oxygen Delivery: Room Air Lungs: Clear to Auscultation PACU Phase 2 Assessment Complications: No Follow up Care: No Patient Instructions Provided: N/A Modesto Masterson MD Oct 31, 2016 13:06
--- NOTE | 2016-11-01 11:22 | PATH ---
SURGICAL PATHOLOGY Attending Physician:Brianda Ferrell CASE STATUS: Signed Out PATIENT NAME: PALOMA JOHNSTON PID: [id number] : 1940 DATE COLLECTED:10/31/2016 16:33 SPECIMEN: Colon, Polyp CLINICAL HISTORY: 1. 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 10/31/2016 DAC MICRO DESCRIPTION: See diagnosis. ICD-9 CODES: CPT CODES: 1: 38767 Electronically Signed Out Nelson Clayton MD [facility] Pathology [facility] [address] [facility], [place] [address] Technical component performed at [facility], [address] [place] [address] [address], [place], [address]
== END | disposition home or self-care (01) ==
LOC: END 00:49
PROVIDERS: ATTEND Surgery
DX: K57.32 Diverticulitis of large intestine without perforation or abscess without bleeding (principal); Z86.010 Personal history of colon polyps; D12.5 Benign neoplasm of sigmoid colon; I25.10 Atherosclerotic heart disease of native coronary artery without angina pectoris; E78.5 Hyperlipidemia, unspecified; I48.0 Paroxysmal atrial fibrillation; I45.10 Unspecified right bundle-branch block; G47.33 Obstructive sleep apnea (adult) (pediatric); E11.9 Type 2 diabetes mellitus without complications; F41.9 Anxiety disorder, unspecified; G25.81 Restless legs syndrome; M10.9 Gout, unspecified; Z79.82 Long term (current) use of aspirin; Z79.84 Long term (current) use of oral hypoglycemic drugs; Z79.01 Long term (current) use of anticoagulants; Z95.1 Presence of aortocoronary bypass graft; Z85.46 Personal history of malignant neoplasm of prostate; Z87.891 Personal history of nicotine dependence
CPT/HCPCS: 45385; J2250; J3010; J7120

== ENCOUNTER 2016-11-19 00:52 | Day surgery (SDC) | payer MEDICARE ==
[~2016-11-19] VITALS: Ht 177.8 cm; Wt 88.6 kg
[~2016-11-19 00:52] MED LIST changes: -ASPI325T32 PO; +CHOL10008 PO; -CHOL200020 PO; -Lactated Ringer's 1,000 ML IV ONE; -Lactated Ringer's 1,000 ML IV SCH; +METF-778 PO; -METF10002 PO; -MULT-1018 PO; -MetoCLOpramide 5 mg/mL 2 mL Inj IVPUSH PRN; -OMEP-113 PO; +OMEP20CA11 PO; -Ondansetron 2 mg/mL 2 mL Inj IVPUSH PRN; -PSYL1PAC10 PO; -Propofol 10,000 mCg/mL 20 mL Inj ONE; -fentaNYL-PF 50 mCg/mL 2 mL Inj ONE
[2016-11-19 13:22] VITALS: BP 122/60; PULSE 66; RESP 16; O2SAT 94
[2016-11-19 13:27] LABS: BASOPHILS % (AUTO) 0.2 % (0-3); EOSINOPHILS % (AUTO) 0.9 % (0-5); MONOCYTES % (AUTO) 8.9 % (4-12); Mean Corpuscular Hemoglobin 33.3 pg (27.0-35.0); Mean Corpuscular Volume 92.4 fL (81-100); Platelet Count 116 bil/L (150-400)
[2016-11-19 13:51] LABS: INR 1.04 ratio
[2016-11-19] MEDS ORDERED: Vancomycin 1,000 mg/250 mL NS IV ONE ×2 (14:35)
--- NOTE | 2016-11-19 15:11 | NUR ---
[facility] Patient admitted to [facility] bed 1 at 1300 for removal cardiac recorder. at bedside but left and will return to transport home. Patient denies pain. HL placed and labs drawn. Consent to be obtained pr . History and medications reviewed. Pre-procedure teaching done and questions answered.
[2016-11-19] MEDS ORDERED: Heparin 10,000 Unit/1,000 mL NS Premix IV ONE (15:44)
[2016-11-19] MEDS ORDERED: HYDROcodone-APAP 5-325 mg Tablet PO PRN (16:10)
[2016-11-19] MEDS ORDERED: Ondansetron 2 mg/mL 2 mL Inj IVPUSH PRN (16:10)
[2016-11-19 16:41] VITALS: BP 151/91; PULSE 60; RESP 14; O2SAT 96
[2016-11-19 16:42] VITALS: BP 151/91; PULSE 60; RESP 14; O2SAT 96
[2016-11-19 16:45] VITALS: BP 164/83; PULSE 60; RESP 18; O2SAT 94
[2016-11-19 17:00] VITALS: BP 164/83; PULSE 60; RESP 18; O2SAT 94
--- NOTE | 2016-11-19 18:54 | NUR ---
MICHAEL Patient return from cathode washer cardiac loop recorder removal at 1640. No sedation given. Patient denies pain. No bleeding or hematoma at incision site. Ambulate, taking PO and void prior to discharge. Instructions reviewed with patient and , written information given and questions answered. Home with at 1730.
--- NOTE | 2016-11-20 06:58 | OP ---
[address] [address] OPERATIVE REPORT PATIENT: PALOMA JOHNSTON : 1940 MR#: [id number] ADMIT: 11/19/2016 JOB ID: [id number] DATE OF SURGERY: 11/19/2016 PREOPERATIVE DIAGNOSIS(ES): Implantable loop recorder at end of life. POSTOPERATIVE DIAGNOSIS(ES): Implantable loop recorder at end of life. PROCEDURE PERFORMED: Loop recorder explantation. SURGEON: Floyd Trivedi MD. DIRECTOR OF SEARCH ENGINE MARKETING: Luis Galvez PA-C. ANESTHESIA: Local anesthetic alone was utilized for this case. INDICATION: The patient is a pleasant, 76-year-old man who had loop recorder implantation a few years back for syncope loop recorder failed to reveal significant dysrhythmia and he is here for removal of the device after next ablation of the risks and benefits due to the device being at end of life. PROCEDURAL DESCRIPTION: Following informed signed consent, the patient was taken to the procedure room in a fasting, nonsedated state where he was prepped in the usual sterile fashion. The left parasternal incision was infiltrated with a 50/50 mixture of bupivacaine and lidocaine. Once adequate anesthesia had been achieved, a 1 cm incision was performed overlying the previous surgical scar. Dissection was carried down to the capsule. The loop recorder was freed loose of adhesions and the anchoring stitch was removed. It was then explanted from the pocket. The incision was closed with running layers of absorbable suture. The wound was dressed with skin adhesive and a small dressing. At the end of procedure, the needle, sponge, instrument counts were all correct. COMPLICATIONS: None. ESTIMATED BLOOD LOSS: None. IMPRESSION: Successful loop recorder implantation. PLAN: 1. Recovery and discharge from the [facility]. 2. Follow up in Device [facility] for wound check in one week. ATTENDING STATEMENT: Floyd Trivedi MD, electrophysiologic attending, was present and supervised/performed all aspects of this procedure.
== END 2016-11-19 23:59 | disposition home or self-care (01) ==
LOC: SOUO 00:52
PROVIDERS: ATTEND Internal Medicine Cardiovascular Disease
DX: Z45.09 Encounter for adjustment and management of other cardiac device (principal); G47.33 Obstructive sleep apnea (adult) (pediatric); I48.0 Paroxysmal atrial fibrillation; I45.10 Unspecified right bundle-branch block; E78.5 Hyperlipidemia, unspecified; E11.9 Type 2 diabetes mellitus without complications; I10 Essential (primary) hypertension; I25.10 Atherosclerotic heart disease of native coronary artery without angina pectoris; Z95.1 Presence of aortocoronary bypass graft
CPT/HCPCS: 33284; 36415; 80048; 85025; 85610; J1644